=== PATIENT | female | born 1955 | race Two or more races ===

== ENCOUNTER 2023-04-05 05:26 | Inpatient (IN) | payer MEDICAID ==
[~2023-04-05] VITALS: Ht 152.4 cm; Wt 103.0 kg
[2023-04-05] VITALS (8 sets, daily range): BP systolic 135–154; BP diastolic 85–92; PULSE 109–121; RESP 18–25; TEMP 98.2; O2SAT 93–97
[2023-04-05] MEDS: ALBUTEROL SULF 2.5 MG/0.5ML(0.5%) NEB SOLN NEB ONE (06:08)
[2023-04-05] MEDS: IPRATROPIUM BROM 0.5 MG/2.5ML INH SOL NEB ONE (06:08)
[2023-04-05] MEDS: BUDESONIDE (INHALATION) 0.5 MG/2 ML NEB NEB ONE (06:08)
[2023-04-05 06:12] LABS: Base Excess 0.3 mmol/L (-2.0-2.0)
[2023-04-05 06:16] LABS: Basophils # (auto) 0.1 10 ^3/uL (0-0.2); Basophils % (auto) 0.7 % (0.0-2.0); Eosinophils # (auto) 0.4 10 ^3/uL (0-0.8); Hemoglobin 13.9 g/dL (12.2-16.2); Red Cell Distribution Width 15.9 % (11.8-14.3)
[2023-04-05 06:21] LABS: Eosinophils % (auto) 2.5 % (0.0-7.0); Hematocrit 43.6 % (36.0-46.0); Lymphocytes # (auto) 4.4 10 ^3/uL (0.4-5.4); Lymphocytes % (auto) 28.6 % (10.0-50.0); Mean Corpuscular Hemoglobin 26.3 pg (28.0-32.0); Mean Corpuscular Hgb Conc. 31.8 g/dL (32.0-36.0); Mean Corpuscular Volume 82.5 fL (80.0-100.0); Monocytes # (auto) 1.6 10 ^3/uL (0-1.3); Monocytes % (auto) 10.4 % (0.0-12.0); Neutrophils % (auto) 57.8 % (37.0-80.0); Red Blood Cells 5.28 10^6/uL (4.0-5.20); White Blood Cell 15.5 10^3/uL (4.4-10.8)
[2023-04-05] MEDS: methylPREDNISolone SOD SUCC 125 MG/2 ML VL IV ONE (06:23)
[2023-04-05] MEDS: DexAMETHasone SOD PHOS 10MG/1ML VIAL INJ IV ONE (06:23)
[2023-04-05 06:33] LABS: INR 0.99 (0.9-1.15); Partial Thromboplastin Time 27.9 SEC (24.5-34.5); Prothrombin Time 10.4 sec (9.3-11.8)
[2023-04-05 06:40] LABS: Alanine Aminotransferase 19 U/L (7-40); Albumin 4.6 g/dL (3.2-4.8); Alkaline Phosphatase 114 U/L (46-116); Anion Gap 9 (5-15); Aspartate Aminotransferase 20 U/L (13-40); BUN/Creatinine Ratio 10.2 (10.0-20.0); Blood Urea Nitrogen 9 mg/dL (9-23); Calcium 9.6 mg/dL (8.7-10.4); Carbon Dioxide 25 mmol/L (20-30); Chloride 104 mmol/L (98-107); Glucose 140 mg/dL (74-106); Magnesium 1.9 mg/dL (1.6-2.6); Potassium 3.7 mmol/L (3.5-5.1); Sodium 138 mmol/L (136-145)
[2023-04-05 06:41] LABS: Bilirubin, Total 0.3 mg/dL (0.2-1.0); Total Protein 7.6 g/dL (5.7-8.2)
[2023-04-05] MEDS: MAGNESIUM SULFATE 1GM/100ML 100 ML IV SCH (07:00)
[2023-04-05] MEDS: ENOXAPARIN SOD 100 MG/1 ML SYRINGE SC ONE (08:32)
[2023-04-05 08:33] LABS: Urine Bacteria FEW /hpf (None Seen); Urine Blood Negative /uL (Negative); Urine Clarity Clear (Clear); Urine Color Colorless (Yellow); Urine Protein, UAD Negative (Negative); Urine Specific Gravity 1.003 (1.001-1.035); Urine Urobilinogen Normal (Negative); Urine WBC <1 /hpf (0 - 5)
[2023-04-05] MEDS ORDERED: DEXTROSE (50%) 50ML SYRG IV PRN (12:00)
[2023-04-05] MEDS ORDERED: DOCUSATE SOD 100 MG CAP PO PRN (12:15)
[2023-04-05] MEDS ORDERED: ONDANSETRON HCL 4 MG/2 ML VIAL IV PRN (12:15)
[2023-04-05] MEDS ORDERED: MORPHINE SULFATE INJ 2 MG/ml SYRG IV PRN (12:15)
[2023-04-05] MEDS: AZITHROMYCIN 250 MG TAB PO ONE (12:54)
[2023-04-05] MEDS: SODIUM CHLORIDE 0.9% 1,000 ML IV SCH (12:54)
[2023-04-05] MEDS: LEVALBUTEROL HCL 1.25 MG/3 ML NEB NEB SCH (14:00)
[2023-04-05] MEDS: IPRATROPIUM BROM 0.5 MG/2.5ML INH SOL NEB SCH (14:00)
[2023-04-05] MEDS: methylPREDNISolone SOD SUCC 125 MG/2 ML VL IV SCH (14:24)
[2023-04-05] MEDS: ACCU-CHEK COMFORT CURVE STRIP VI SCH (17:15)
[2023-04-05] MEDS: InsuLIN REG 1unit/0.01ml Soln (100units/ml) SC SCH (17:16)
[2023-04-05 17:55] LABS: COVID19 ANTIGEN SOFIA FIA NEGATIVE (NEGATIVE)
[2023-04-05 17:56] LABS: Rapid Influenza A Negative (Negative); Rapid Influenza B Negative (Negative)
[2023-04-05] MEDS: IOHEXOL 350 MG/ML 100ML IJ ONE (19:41)
[2023-04-06] VITALS (20 sets, daily range): BP systolic 104–136; BP diastolic 61–69; PULSE 60–114; RESP 18–20; TEMP 97.6–98; O2SAT 91–100
[2023-04-06 07:04] LABS: Basophils # (auto) 0 10 ^3/uL (0-0.2); Basophils % (auto) 0.1 % (0.0-2.0); Eosinophils # (auto) 0 10 ^3/uL (0-0.8); Hematocrit 40.7 % (36.0-46.0); Monocytes # (auto) 0.5 10 ^3/uL (0-1.3); Neutrophils # (auto) 10.7 10 ^3/uL (1.6-8.6)
[2023-04-06 07:05] LABS: Hemoglobin 13.1 g/dL (12.2-16.2); Lymphocytes # (auto) 1.1 10 ^3/uL (0.4-5.4); Lymphocytes % (auto) 9.2 % (10.0-50.0); Mean Corpuscular Hemoglobin 26.3 pg (28.0-32.0); Mean Corpuscular Hgb Conc. 32.1 g/dL (32.0-36.0); Mean Corpuscular Volume 81.8 fL (80.0-100.0); Neutrophils % (auto) 86.7 % (37.0-80.0); Red Blood Cells 4.97 10^6/uL (4.0-5.20); Red Cell Distribution Width 16.1 % (11.8-14.3); White Blood Cell 12.3 10^3/uL (4.4-10.8)
[2023-04-06 07:21] LABS: Alanine Aminotransferase 17 U/L (7-40); Alkaline Phosphatase 91 U/L (46-116); Anion Gap 9 (5-15); Aspartate Aminotransferase 19 U/L (13-40); BUN/Creatinine Ratio 11.7 (10.0-20.0); Blood Urea Nitrogen 9 mg/dL (9-23); Calcium 9.5 mg/dL (8.5-10.1); Carbon Dioxide 23 mmol/L (20-30); Chloride 106 mmol/L (98-107); Glucose 160 mg/dL (74-106); Sodium 138 mmol/L (136-145)
[2023-04-06 07:22] LABS: Albumin 4.4 g/dL (3.2-4.8); Bilirubin, Total 0.5 mg/dL (0.2-1.0); Total Protein 7.5 g/dL (5.7-8.2)
[2023-04-06] MEDS: AZITHROMYCIN 250 MG TAB PO SCH (10:11)
[2023-04-06] MEDS: PANTOPRAZOLE 40 MG/10 ML VIAL INJ IV SCH (10:12)
[2023-04-07] VITALS (21 sets, daily range): BP systolic 110–156; BP diastolic 54–88; PULSE 72–105; RESP 17–20; TEMP 97.3–98.6; O2SAT 93–100
[2023-04-07] MEDS: AZITHROMYCIN 500MG/ 250ML 250 ML IV SCH (12:37)
[2023-04-07] MEDS: cefTRIAXone 1GM/50ML D5W 50 ML IV SCH (12:37)
[2023-04-08] VITALS (13 sets, daily range): BP systolic 140–159; BP diastolic 77–86; PULSE 78–98; RESP 16–18; TEMP 97.5–98.4; O2SAT 18–100
[2023-04-08 07:31] LABS: Anion Gap 8 (5-15); Carbon Dioxide 24 mmol/L (20-30); Chloride 106 mmol/L (98-107); Sodium 138 mmol/L (136-145)
[2023-04-08 07:32] LABS: Calcium 9.4 mg/dL (8.7-10.4)
[2023-04-08 07:37] LABS: BUN/Creatinine Ratio 17.3 (10.0-20.0); Blood Urea Nitrogen 13 mg/dL (9-23); Glucose 146 mg/dL (74-106)
[2023-04-08 09:58] LABS: Basophils # (auto) 0 10 ^3/uL (0-0.2); Eosinophils # (auto) 0 10 ^3/uL (0-0.8); Hemoglobin 13.3 g/dL (12.2-16.2); Lymphocytes # (auto) 0.7 10 ^3/uL (0.4-5.4); Monocytes # (auto) 0.4 10 ^3/uL (0-1.3)
[2023-04-08 10:01] LABS: Basophils % (auto) 0.1 % (0.0-2.0); Hematocrit 41.8 % (36.0-46.0); Mean Corpuscular Hemoglobin 26.2 pg (28.0-32.0); Mean Corpuscular Hgb Conc. 31.9 g/dL (32.0-36.0); Mean Corpuscular Volume 82.1 fL (80.0-100.0); Monocytes % (auto) 3.2 % (0.0-12.0); Neutrophils # (auto) 10.7 10 ^3/uL (1.6-8.6); Neutrophils % (auto) 90.7 % (37.0-80.0); Red Blood Cells 5.09 10^6/uL (4.0-5.20); Red Cell Distribution Width 16.3 % (11.8-14.3); White Blood Cell 11.8 10^3/uL (4.4-10.8)
[2023-04-08] MEDS ORDERED: AZIT-74 PO (13:03)
[2023-04-08] MEDS ORDERED: METH4PAK PO (13:04)
[2023-04-09 09:07] LABS: Hepatitis B Surface Antigen Negative (Negative)
[2023-04-09 09:29] LABS: Hepatitis C Antibody Negative (Negative)
== END 2023-04-08 16:20 | disposition home or self-care (01) | DRG 140 ==
LOC: ER 05:26 → TELE 12:07 → TELE-WESTW 21:58
PROVIDERS: ADMIT Nurse Practitioner Family; ATTEND Internal Medicine
DX: J44.1 Chronic obstructive pulmonary disease with (acute) exacerbation (principal); J45.31 Mild persistent asthma with (acute) exacerbation; I10 Essential (primary) hypertension; R73.03 Prediabetes; R79.1 Abnormal coagulation profile; Z20.822 Contact with and (suspected) exposure to COVID-19; Z79.899 Other long term (current) drug therapy
CPT/HCPCS: 36415; 36600; 71045; 71275; 80048; 80053; 81001; 82805; 82962; 83036; 83735; 83880; 84484; 85025; 85379; 85610; 85730; 86803; 87340; 87426; 87804; 93005; 94640; 99291; C9113; G0378; J1100; J1815

== ENCOUNTER 2023-07-11 09:37 | Emergency (ER) | payer MEDICAID ==
[~2023-07-11] VITALS: Ht 152.4 cm; Wt 105.7 kg
[~2023-07-11 09:37] MED LIST: AZIT-74 PO; METH4PAK PO
[2023-07-11] MEDS ORDERED: ACET500T58 PO (11:47)
[2023-07-11] MEDS ORDERED: LORA10CA PO (11:47)
[2023-07-11] MEDS ORDERED: BENZ100C97 PO (11:47)
[2023-07-11 12:40] VITALS: BP 156/91; PULSE 105; RESP 24; TEMP 98.3; O2SAT 100
== END 2023-07-11 12:50 | disposition home or self-care (01) ==
LOC: ER 09:37
DX: J39.8 Other specified diseases of upper respiratory tract (principal); I10 Essential (primary) hypertension; E66.01 Morbid (severe) obesity due to excess calories; Z68.42 Body mass index [BMI] 45.0-49.9, adult
CPT/HCPCS: 71046

== ENCOUNTER → 2023-10-17 | Outpatient (CLI) | payer MEDICAID ==
[~2023-10-17] MED LIST changes: +ACET500T58 PO; +BENZ100C97 PO; +LORA10CA PO
[2023-10-17 07:46] LABS: Urine Bacteria None Seen /hpf (None Seen)
[2023-10-17 08:11] LABS: Basophils # (auto) 0.1 10 ^3/uL (0-0.2); Basophils % (auto) 0.8 % (0.0-2.0); Eosinophils # (auto) 0.4 10 ^3/uL (0-0.8); Hematocrit 41.3 % (36.0-46.0); Hemoglobin 13.8 g/dL (12.2-16.2); Lymphocytes # (auto) 2.4 10 ^3/uL (0.4-5.4); Lymphocytes % (auto) 28.5 % (10.0-50.0); Mean Corpuscular Hemoglobin 28.4 pg (28.0-32.0); Mean Corpuscular Hgb Conc. 33.4 g/dL (32.0-36.0); Mean Corpuscular Volume 84.9 fL (80.0-100.0); Monocytes # (auto) 0.9 10 ^3/uL (0-1.3); Monocytes % (auto) 10.2 % (0.0-12.0); Neutrophils # (auto) 4.6 10 ^3/uL (1.6-8.6); Neutrophils % (auto) 55.5 % (37.0-80.0); Red Blood Cells 4.87 10^6/uL (4.0-5.20); Red Cell Distribution Width 14.4 % (11.8-14.3); White Blood Cell 8.3 10^3/uL (4.4-10.8)
[2023-10-17 08:21] LABS: Urine Blood Negative /uL (Negative); Urine Clarity Clear (Clear); Urine Color Light-Yellow (Yellow); Urine Protein, UAD Negative (Negative); Urine Specific Gravity 1.015 (1.001-1.035); Urine Urobilinogen Normal (Negative); Urine WBC 5 /hpf (0 - 5); Urine pH 6.5 (5.0-9.0)
[2023-10-17 08:53] LABS: Albumin 4.2 g/dL (3.2-4.8); Alkaline Phosphatase 91 U/L (46-116); Anion Gap 4 (5-15); Aspartate Aminotransferase 12 U/L (13-40); BUN/Creatinine Ratio 8.5 (10.0-20.0); Blood Urea Nitrogen 7 mg/dL (9-23); Calcium 9.6 mg/dL (8.7-10.4); Carbon Dioxide 29 mmol/L (20-30); Chloride 108 mmol/L (98-107); Glucose 99 mg/dL (74-106); LDL Cholesterol 101 mg/dL (< 100); Sodium 141 mmol/L (136-145); Triglycerides 197 mg/dL (< 150)
[2023-10-17 08:54] LABS: Bilirubin, Total 0.6 mg/dL (0.2-1.0); Cholesterol 161 mg/dL (< 200); HDL Cholesterol 40 mg/dL (40-59); Total Protein 6.8 g/dL (5.7-8.2)
[2023-10-17 08:57] LABS: Free T4 (Free Thyroxine) 0.93 ng/dL (0.89-1.76)
[2023-10-17 08:58] LABS: Alanine Aminotransferase < 9 U/L (7-40); Folate (Folic Acid) 20.97 ng/mL (>5.38)
== END | disposition home or self-care (01) ==
LOC: LAB 07:30
PROVIDERS: ATTEND Student in an Organized Health Care Education/Training Program
DX: I10 Essential (primary) hypertension (principal); E66.01 Morbid (severe) obesity due to excess calories
CPT/HCPCS: 36415; 80053; 80061; 81001; 82607; 82746; 83036; 84439; 84443; 85025; 86431

== ENCOUNTER → 2023-10-18 | Outpatient (CLI) | payer MEDICAID | END | disposition home or self-care (01) | LOC: LAB 14:34 | PROVIDERS: ATTEND Student in an Organized Health Care Education/Training Program | DX: Z12.11 Encounter for screening for malignant neoplasm of colon (principal); I10 Essential (primary) hypertension; E66.01 Morbid (severe) obesity due to excess calories | CPT/HCPCS: 82270 ==